=== PATIENT | female | born 1950 | race Caucasian/White ===

== ENCOUNTER 2018-10-13 07:51 | Inpatient (IN) ==
[2018-10-13] MEDS: LACTATED RINGERS 1,000 ML IV SCH (08:27)
[2018-10-13] MEDS ORDERED: SCOPOLAMINE 1.5 MG PATCH TRANSDERM ONE (08:34)
[2018-10-13] MEDS ORDERED: ePHEDrine 50 MG/ML AMP ONE ×2 (08:47→09:00)
[2018-10-13] MEDS ORDERED: DEXAMETHASONE 4 MG/1 ML VIAL ONE (09:00)
[2018-10-13] MEDS ORDERED: PROPOFOL 200 MG/20 ML VIAL IV ONE (09:00)
[2018-10-13] MEDS ORDERED: LIDOCAINE 2% 5 ML VIAL ONE (09:00)
[2018-10-13] MEDS ORDERED: ONDANSETRON 4 MG/2 ML VIAL ONE (09:00)
[2018-10-13] MEDS ORDERED: SODIUM CHLORIDE 0.45% 1,000 ML IV SCH (09:30)
[2018-10-13] MEDS ORDERED: SODIUM CHLORIDE 0.9% 500 ML IV ONE ×2 (09:59→10:01)
[2018-10-13] MEDS: DILTIAZEM 60 MG TABLET PO SCH ×4 (13:00→20:48)
[2018-10-13 13:24] LABS: PT Patient Result 10.6 SECS; Partial Thromboplastin Time 25.2 SECS (0-40)
[2018-10-13 13:25] LABS: Alanine Aminotransferase 13 U/L (13-56); Albumin 3.2 G/DL (3.4-5.0); Alkaline Phosphatase 79 U/L (45-117); Aspartate Amino Transferase 16 U/L (0-37); Bilirubin,Total < 0.39 MG/DL (0.2-1.0); Blood Urea Nitrogen 12 MG/DL (7-18); Calcium 8.7 MG/DL (8.5-10.1); Glucose 164 MG/DL (74-106); Osmolality,Calculated 282.4 MOS/KG (273-304); Potassium 3.8 MMOL/L (3.5-5.1); Sodium 140 MMOL/L (136-145); Total Protein 7.2 G/DL (6.4-8.3)
[2018-10-13 13:36] LABS: Basophils % 0.1 % (0.0-0.8); Eosinophils % 0.1 % (0.00-10.9); Hematocrit 30.1 VOL% (35.7-47.0); Hemoglobin 8.6 GM/DL (12.0-16.0); Immature Granulocytes % 0.8 %; Immature Granulocytes Absolute 0.11 #; Lymphocytes # 0.6 10*3/uL (1.4-4.0); Lymphocytes % 4.2 % (21.3-54.2); Mean Corpuscular HGB Conc 28.6 GM/DL (32-36); Mean Corpuscular Hemoglobin 19 PG (27-34); Mean Corpuscular Volume 67.6 FL (87-102); Mean Platelet Volume 9.4 FL (9.6-12.0); Monocytes # 0.2 10*3/uL (0.11-0.8); Neutrophils # 13.7 10*3/uL (1.4-7.4); Neutrophils % 93.8 % (38.7-73.9); Platelet Count 586 T/CUMM (130-400); Red Blood Count 4.45 MC/CUMM (3.8-5.5); Red Cell Distribution Width 18.7 % (9.3-17.3); White Blood Count 14.6 T/CUMM (4-12)
[2018-10-13 14:11] LABS: Lymphocytes 5 % (20-55); Segmented Neutrophils 95 % (50-85); Total Cells Counted 100
[2018-10-13 14:37] LABS: Anisocytosis 1+; Microcytosis 1+
[2018-10-13 14:38] LABS: Hypochromasia 2+; Ovalocytes Slight; Stomatocytes Slight
[2018-10-13 14:41] LABS: Tear Drop Cells Slight
[2018-10-13 14:43] LABS: Platelet Estimate Increased
[2018-10-13] MEDS: MULTIVITAMIN INJ 10 ML in SODIUM CHLORIDE 0.9% 1,000 ML IV SCH (17:26)
[2018-10-13] MEDS ORDERED: NAPROXEN 500 MG TABLET PO PRN (21:55)
[2018-10-13 22:38] LABS: Apearance,Urine CLOUDY (Clear); Bilirubin,Urine Negative (Negative); Blood, Urine Negative (Negative); Glucose,Urine (UA) Negative (Negative); Ketones,Urine Negative (Negative); Mucus,Urine Occasional /LPF (Occasional); Nitrite,Urine Positive (Negative); Protein,Urine Negative; RBC,Urine 11 /HPF (0-4); Squamous Epithelial Cell,Urine Occasional /HPF (0-10); Urine Color Yellow (Yellow); Urine Specific Gravity 1.028 (1.001-1.035); Urine Urobilinogen < 2.0 EU/DL (0.2-1.0); WBC,Urine 122 /HPF (0-6)
[2018-10-14] MEDS: LACTATED RINGERS 1,000 ML IV SCH ×2 (01:48→10:17)
[2018-10-14] MEDS ORDERED: SCOPOLAMINE 1.5 MG PATCH TRANSDERM ONE (07:00)
[2018-10-14] MEDS ORDERED: FAMOTIDINE 20 MG TABLET PO ONE (07:00)
[2018-10-14] MEDS: DILTIAZEM 60 MG TABLET PO SCH ×4 (10:17→22:26)
[2018-10-14] MEDS: MULTIVITAMIN INJ 10 ML in SODIUM CHLORIDE 0.9% 1,000 ML IV SCH (13:13)
[2018-10-14] MEDS ORDERED: CLINDAMYCIN 600 MG/4 ML VIAL ONE (13:17)
[2018-10-14] MEDS ORDERED: CIPROFLOXACIN 400 MG/200 ML PREMIX IV ONE (13:46)
[2018-10-14] MEDS ORDERED: ROPIVACAINE 0.5% 30 ML VIAL ONE (14:42)
[2018-10-14 14:44] LABS: Apearance,Urine CLEAR (Clear); Bacteria,Urine Occasional /HPF (Few); Bilirubin,Urine Negative (Negative); Blood, Urine Moderate mg/dL (Negative); Glucose,Urine (UA) Negative (Negative); Ketones,Urine Negative (Negative); Mucus,Urine Occasional /LPF (Occasional); Nitrite,Urine Negative (Negative); Protein,Urine Negative; RBC,Urine 38 /HPF (0-4); Squamous Epithelial Cell,Urine Occasional /HPF (0-10); Urine Color Straw (Yellow); Urine Specific Gravity 1.016 (1.001-1.035); Urine Urobilinogen < 2.0 EU/DL (0.2-1.0); WBC,Urine 14 /HPF (0-6)
[2018-10-14] MEDS ORDERED: PROPOFOL 200 MG/20 ML VIAL IV ONE (14:51)
[2018-10-14] MEDS ORDERED: SEVOFLURANE 1 UNIT/15 MINUTE INH ONE (14:51)
[2018-10-14] MEDS ORDERED: MIDAZOLAM 2 MG/2 ML VIAL ONE (14:51)
[2018-10-14] MEDS ORDERED: ONDANSETRON 4 MG/2 ML VIAL ONE (14:52)
[2018-10-14] MEDS ORDERED: ESMOLOL 100 MG/10 ML VIAL IV ONE (14:52)
[2018-10-14] MEDS ORDERED: ROCURONIUM 100 MG/10 ML VIAL IV ONE (14:52)
[2018-10-14] MEDS ORDERED: NEOSTIGMINE 10 MG/10 ML VIAL ONE (14:52)
[2018-10-14] MEDS ORDERED: PHENYLEPHRINE 1 MG/10 ML SYRINGE IV ONE (14:52)
[2018-10-14] MEDS ORDERED: SODIUM CHLORIDE 0.9% 100 ML IV ONE (14:52)
[2018-10-14] MEDS ORDERED: DEXAMETHASONE 10 MG/1 ML VIAL ONE (14:52)
[2018-10-14] MEDS ORDERED: SODIUM CHLORIDE 0.9% 1,000 ML IV ONE (14:52)
[2018-10-14] MEDS ORDERED: fentaNYL 100 MCG/2 ML VIAL ONE (14:52)
[2018-10-14] MEDS ORDERED: LACTATED RINGERS 1,000 ML IV ONE (14:52)
[2018-10-14] MEDS ORDERED: GLYCOPYRROLATE 0.4 MG/2 ML VIAL ONE (14:52)
[2018-10-14] MEDS: POTASSIUM CITRATE 10 MEQ TABLET PO SCH ×2 (16:00→22:25)
[2018-10-14] MEDS: MORPHINE 4 MG/1 ML VIAL IV PRN ×3 (17:18→22:19)
[2018-10-15] MEDS: MORPHINE 4 MG/1 ML VIAL IV PRN ×3 (03:55→20:39)
[2018-10-15 07:00] LABS: Calcium 8.4 MG/DL (8.5-10.1); Osmolality,Calculated 283.4 MOS/KG (273-304); Potassium 4.3 MMOL/L (3.5-5.1)
[2018-10-15 07:10] LABS: Basophils % 0.1 % (0.0-0.8); Hematocrit 26.7 VOL% (35.7-47.0); Hemoglobin 7.3 GM/DL (12.0-16.0); Immature Granulocytes % 0.5 %; Immature Granulocytes Absolute 0.09 #; Lymphocytes # 0.7 10*3/uL (1.4-4.0); Lymphocytes % 4.5 % (21.3-54.2); Mean Corpuscular HGB Conc 27.3 GM/DL (32-36); Mean Corpuscular Hemoglobin 19 PG (27-34); Mean Corpuscular Volume 68.5 FL (87-102); Mean Platelet Volume 9.1 FL (9.6-12.0); Monocytes # 0.8 10*3/uL (0.11-0.8); Neutrophils # 14.8 10*3/uL (1.4-7.4); Neutrophils % 89.9 % (38.7-73.9); Platelet Count 511 T/CUMM (130-400); Red Cell Distribution Width 18.7 % (9.3-17.3); White Blood Count 16.5 T/CUMM (4-12)
[2018-10-15] MEDS: DILTIAZEM 60 MG TABLET PO SCH ×4 (09:38→20:31)
[2018-10-15] MEDS: POTASSIUM CITRATE 10 MEQ TABLET PO SCH ×3 (09:39→20:32)
[2018-10-15 10:19] LABS: Band Neutrophils 1 % (0-10); Hypochromasia 3+; Lymphocytes 3 % (20-55); Microcytosis 2+; Ovalocytes Few; Segmented Neutrophils 95 % (50-85); Target Cells Slight; Total Cells Counted 100
[2018-10-15 10:20] LABS: Platelet Estimate Increased
[2018-10-15] MEDS: LACTATED RINGERS 1,000 ML IV SCH (12:33)
[2018-10-15] MEDS: MULTIVITAMIN INJ 10 ML in SODIUM CHLORIDE 0.9% 1,000 ML IV SCH (12:39)
[2018-10-15] MEDS: CIPROFLOXACIN 500 MG TABLET PO SCH (20:32)
[2018-10-16 07:36] LABS: Basophils % 0.1 % (0.0-0.8); Eosinophils % 0.1 % (0.00-10.9); Immature Granulocytes % 0.5 %; Immature Granulocytes Absolute 0.07 #; Lymphocytes # 1.4 10*3/uL (1.4-4.0); Lymphocytes % 10.5 % (21.3-54.2); Mean Corpuscular HGB Conc 27.6 GM/DL (32-36); Mean Corpuscular Hemoglobin 19 PG (27-34); Mean Corpuscular Volume 69.3 FL (87-102); Mean Platelet Volume 9.3 FL (9.6-12.0); Monocytes # 1.2 10*3/uL (0.11-0.8); Monocytes % 9.2 % (1.7-12.7); Neutrophils # 10.7 10*3/uL (1.4-7.4); Neutrophils % 79.6 % (38.7-73.9); Platelet Count 416 T/CUMM (130-400); Red Blood Count 3.61 MC/CUMM (3.8-5.5); Red Cell Distribution Width 18.7 % (9.3-17.3); White Blood Count 13.4 T/CUMM (4-12)
[2018-10-16 07:41] LABS: Hemoglobin 6.9 GM/DL (12.0-16.0)
[2018-10-16 07:42] LABS: Hypochromasia 1+; Microcytosis 1+; Platelet Estimate Adequate
[2018-10-16] MEDS: CIPROFLOXACIN 500 MG TABLET PO SCH ×2 (08:21→21:16)
[2018-10-16] MEDS: DILTIAZEM 60 MG TABLET PO SCH ×4 (08:22→21:16)
[2018-10-16] MEDS: POTASSIUM CITRATE 10 MEQ TABLET PO SCH ×3 (08:22→21:16)
[2018-10-16] MEDS: MORPHINE 4 MG/1 ML VIAL IV PRN ×2 (10:09→17:43)
[2018-10-16] MEDS ORDERED: SODIUM CHLORIDE 0.9% 1,000 ML IV PRN (11:46)
[2018-10-16] MEDS: ONDANSETRON 4 MG/2 ML VIAL IV PRN (14:29)
[2018-10-16] MEDS ORDERED: NITROGLYCERIN SL 0.4 MG TABLET SL ONE (17:02)
[2018-10-16] MEDS ORDERED: ASPIRIN CHEW 81 MG TABLET PO ONE (17:03)
[2018-10-16] MEDS ORDERED: MORPHINE 10 MG/1 ML VIAL ONE (17:04)
[2018-10-16] MEDS ORDERED: NITROGLYCERIN SL 0.4 MG TABLET SL PRN (17:04)
[2018-10-16] MEDS ORDERED: ALUM/MAG/SIMETH/LIDO VISC 1:1 30 ML BOTTLE PO ONE (17:27)
[2018-10-16 18:02] LABS: Albumin 2.6 G/DL (3.4-5.0); Bilirubin,Total 0.6 MG/DL (0.2-1.0); Calcium 8.3 MG/DL (8.5-10.1); Osmolality,Calculated 283.4 MOS/KG (273-304); Potassium 3.8 MMOL/L (3.5-5.1); Total Protein 6.4 G/DL (6.4-8.3)
[2018-10-16 18:20] LABS: Basophils % 0.2 % (0.0-0.8); Hematocrit 34.5 VOL% (35.7-47.0); Hemoglobin 10.1 GM/DL (12.0-16.0); Immature Granulocytes % 0.7 %; Immature Granulocytes Absolute 0.13 #; Lymphocytes # 1.5 10*3/uL (1.4-4.0); Lymphocytes % 7.8 % (21.3-54.2); Mean Corpuscular HGB Conc 29.3 GM/DL (32-36); Mean Corpuscular Hemoglobin 20 PG (27-34); Mean Corpuscular Volume 69.4 FL (87-102); Mean Platelet Volume 9.3 FL (9.6-12.0); Monocytes # 1.6 10*3/uL (0.11-0.8); Monocytes % 8.7 % (1.7-12.7); Neutrophils # 15.4 10*3/uL (1.4-7.4); Neutrophils % 82.6 % (38.7-73.9); Platelet Count 517 T/CUMM (130-400); Red Blood Count 4.97 MC/CUMM (3.8-5.5); Red Cell Distribution Width 19.2 % (9.3-17.3); White Blood Count 18.7 T/CUMM (4-12)
[2018-10-17] MEDS: MORPHINE 4 MG/1 ML VIAL IV PRN ×4 (00:01→13:30)
[2018-10-17] MEDS: ONDANSETRON 4 MG/2 ML VIAL IV PRN ×4 (00:13→23:15)
[2018-10-17 05:45] LABS: Calcium 8.8 MG/DL (8.5-10.1); Osmolality,Calculated 283.4 MOS/KG (273-304); Potassium 4.2 MMOL/L (3.5-5.1)
[2018-10-17 06:15] LABS: Basophils % 0.1 % (0.0-0.8); Eosinophils % 0.1 % (0.00-10.9); Hematocrit 36.9 VOL% (35.7-47.0); Immature Granulocytes % 0.6 %; Immature Granulocytes Absolute 0.11 #; Lymphocytes # 1.6 10*3/uL (1.4-4.0); Lymphocytes % 8.4 % (21.3-54.2); Mean Corpuscular HGB Conc 28.7 GM/DL (32-36); Mean Corpuscular Hemoglobin 20 PG (27-34); Mean Corpuscular Volume 69.1 FL (87-102); Mean Platelet Volume 9.2 FL (9.6-12.0); Monocytes # 1.7 10*3/uL (0.11-0.8); Neutrophils # 15.5 10*3/uL (1.4-7.4); Neutrophils % 81.8 % (38.7-73.9); Platelet Count 521 T/CUMM (130-400); Red Blood Count 5.34 MC/CUMM (3.8-5.5); Red Cell Distribution Width 19.7 % (9.3-17.3); White Blood Count 18.9 T/CUMM (4-12)
[2018-10-17 06:17] LABS: Hemoglobin 10.6 GM/DL (12.0-16.0)
[2018-10-17 06:19] LABS: Hypochromasia 1+; Platelet Estimate Increased; Polychromasia Few
[2018-10-17] MEDS ORDERED: METOPROLOL TARTRATE 5 MG/5 ML VIAL IV PRN (08:13)
[2018-10-17] MEDS: DILTIAZEM 60 MG TABLET PO SCH ×4 (08:50→21:37)
[2018-10-17] MEDS: CIPROFLOXACIN 500 MG TABLET PO SCH (08:51)
[2018-10-17] MEDS: POTASSIUM CITRATE 10 MEQ TABLET PO SCH ×3 (08:51→21:37)
[2018-10-17] MEDS: LACTATED RINGERS 1,000 ML IV SCH ×2 (08:52→17:28)
[2018-10-17] MEDS: HYDROmorphone 2 MG/1 ML VIAL IV PRN (23:17)
[2018-10-18] MEDS: LACTATED RINGERS 1,000 ML IV SCH ×3 (01:25→19:00)
[2018-10-18] MEDS: ONDANSETRON 4 MG/2 ML VIAL IV PRN ×2 (04:47→19:13)
[2018-10-18] MEDS: HYDROmorphone 2 MG/1 ML VIAL IV PRN ×2 (04:48→19:45)
[2018-10-18 06:19] LABS: Basophils % 0.1 % (0.0-0.8); Hematocrit 33.8 VOL% (35.7-47.0); Immature Granulocytes % 0.5 %; Immature Granulocytes Absolute 0.09 #; Lymphocytes # 0.6 10*3/uL (1.4-4.0); Lymphocytes % 3.6 % (21.3-54.2); Mean Corpuscular HGB Conc 28.4 GM/DL (32-36); Mean Corpuscular Hemoglobin 20 PG (27-34); Mean Corpuscular Volume 69.3 FL (87-102); Mean Platelet Volume 9.9 FL (9.6-12.0); Monocytes # 1.4 10*3/uL (0.11-0.8); Monocytes % 7.9 % (1.7-12.7); Neutrophils # 15.7 10*3/uL (1.4-7.4); Neutrophils % 87.9 % (38.7-73.9); Platelet Count 432 T/CUMM (130-400); Red Blood Count 4.88 MC/CUMM (3.8-5.5); Red Cell Distribution Width 19.7 % (9.3-17.3); White Blood Count 17.9 T/CUMM (4-12)
[2018-10-18 06:26] LABS: Hemoglobin 9.6 GM/DL (12.0-16.0)
[2018-10-18 06:35] LABS: Hypochromasia 1+; Lymphocytes 3 % (20-55); Ovalocytes Slight; Platelet Estimate Adequate; Segmented Neutrophils 90 % (50-85); Total Cells Counted 100
[2018-10-18 06:36] LABS: Microcytosis Slight
[2018-10-18] MEDS: DILTIAZEM 60 MG TABLET PO SCH (08:21)
[2018-10-18] MEDS: POTASSIUM CITRATE 10 MEQ TABLET PO SCH ×3 (08:21→21:35)
[2018-10-18] MEDS: CIPROFLOXACIN INJ 400 MG in PREMIX 1 EACH IV SCH ×2 (11:14→21:35)
[2018-10-18] MEDS: metroNIDAZOLE INJ 500 MG in PREMIX 1 EACH IV SCH ×4 (12:43→22:59)
[2018-10-18] MEDS: METOPROLOL TARTRATE 5 MG/5 ML VIAL IV SCH ×2 (12:43→19:07)
[2018-10-18] MEDS ORDERED: TRACE ELEMENTS (5) 1 ML, MULTIVITAMIN INJ 10 ML in AMINO ACIDS/DEXT/LYTES 5-15% 2,000 ML IV SCH (17:00)
[2018-10-18] MEDS: FAT EMULSION 20% 250 ML IV SCH (17:30)
[2018-10-19] MEDS: HYDROmorphone 2 MG/1 ML VIAL IV PRN ×5 (01:31→22:58)
[2018-10-19] MEDS: METOPROLOL TARTRATE 5 MG/5 ML VIAL IV SCH ×4 (01:33→18:49)
[2018-10-19] MEDS: LACTATED RINGERS 1,000 ML IV SCH ×2 (03:27→14:30)
[2018-10-19] MEDS: metroNIDAZOLE INJ 500 MG in PREMIX 1 EACH IV SCH ×4 (04:44→22:25)
[2018-10-19 06:30] LABS: Calcium 8.6 MG/DL (8.5-10.1); Osmolality,Calculated 284.5 MOS/KG (273-304); Potassium 4.3 MMOL/L (3.5-5.1); Prealbumin 8.9 MG/DL (20-40)
[2018-10-19 06:37] LABS: Basophils % 0.1 % (0.0-0.8); Eosinophils % 0.1 % (0.00-10.9); Hematocrit 30.1 VOL% (35.7-47.0); Immature Granulocytes % 0.7 %; Immature Granulocytes Absolute 0.12 #; Lymphocytes # 0.6 10*3/uL (1.4-4.0); Lymphocytes % 3.8 % (21.3-54.2); Mean Corpuscular HGB Conc 27.9 GM/DL (32-36); Mean Corpuscular Hemoglobin 20 PG (27-34); Mean Corpuscular Volume 70.8 FL (87-102); Mean Platelet Volume 9.8 FL (9.6-12.0); Monocytes # 1.4 10*3/uL (0.11-0.8); Monocytes % 8.7 % (1.7-12.7); Neutrophils # 14.1 10*3/uL (1.4-7.4); Neutrophils % 86.6 % (38.7-73.9); Platelet Count 360 T/CUMM (130-400); Red Blood Count 4.25 MC/CUMM (3.8-5.5); Red Cell Distribution Width 19.6 % (9.3-17.3); White Blood Count 16.3 T/CUMM (4-12)
[2018-10-19 06:38] LABS: Hemoglobin 8.4 GM/DL (12.0-16.0)
[2018-10-19 06:42] LABS: Hypochromasia 1+; Lymphocytes 4 % (20-55); Microcytosis 1+; Platelet Estimate Normal; Segmented Neutrophils 96 % (50-85); Total Cells Counted 100
[2018-10-19] MEDS ORDERED: ALBUTEROL 1.25 MG/3 ML NEB RESP TX PRN (09:06)
[2018-10-19] MEDS: POTASSIUM CITRATE 10 MEQ TABLET PO SCH ×3 (09:39→21:27)
[2018-10-19] MEDS: CIPROFLOXACIN INJ 400 MG in PREMIX 1 EACH IV SCH ×2 (09:46→20:56)
[2018-10-19] MEDS ORDERED: LIDOCAINE 2% VISCOUS 100 ML BOTTLE ONE (12:39)
[2018-10-19] MEDS: FAT EMULSION 20% 250 ML IV SCH (17:21)
[2018-10-19] MEDS: TRACE ELEMENTS (5) 1 ML, MULTIVITAMIN INJ 10 ML in AMINO ACIDS/DEXT/LYTES 5-15% 2,000 ML IV SCH (17:22)
[2018-10-19] MEDS: ONDANSETRON 4 MG/2 ML VIAL IV PRN (18:51)
[2018-10-20] MEDS: ONDANSETRON 4 MG/2 ML VIAL IV PRN (01:25)
[2018-10-20] MEDS: METOPROLOL TARTRATE 5 MG/5 ML VIAL IV SCH ×4 (01:27→18:40)
[2018-10-20] MEDS: LACTATED RINGERS 1,000 ML IV SCH ×4 (01:29→16:39)
[2018-10-20] MEDS: metroNIDAZOLE INJ 500 MG in PREMIX 1 EACH IV SCH ×3 (04:10→19:38)
[2018-10-20] MEDS: HYDROmorphone 2 MG/1 ML VIAL IV PRN ×3 (04:11→20:53)
[2018-10-20] MEDS ORDERED: SCOPOLAMINE 1.5 MG PATCH TRANSDERM ONE (09:14)
[2018-10-20] MEDS ORDERED: ONDANSETRON 4 MG/2 ML VIAL IV ONE (09:19)
[2018-10-20] MEDS ORDERED: DEXAMETHASONE INJ 10 MG in SODIUM CHLORIDE 0.9% 50 ML IV ONE (09:19)
[2018-10-20] MEDS ORDERED: ETOMIDATE 20 MG/10 ML VIAL IV ONE (09:32)
[2018-10-20] MEDS ORDERED: LIDOCAINE 1% 5 ML VIAL ONE (09:32)
[2018-10-20] MEDS ORDERED: PROPOFOL 200 MG/20 ML VIAL IV ONE (09:32)
[2018-10-20] MEDS ORDERED: DEXTROSE 10% 1,000 ML IV PRN (11:30)
[2018-10-20] MEDS ORDERED: GLUCAGON 1 MG VIAL IM PRN (11:30)
[2018-10-20] MEDS ORDERED: DEXTROSE 50% 25 GM/50 ML SYRINGE IV PRN (11:30)
[2018-10-20] MEDS: POTASSIUM CITRATE 10 MEQ TABLET PO SCH ×3 (12:14→20:48)
[2018-10-20] MEDS: CIPROFLOXACIN INJ 400 MG in PREMIX 1 EACH IV SCH ×2 (12:21→20:43)
[2018-10-20] MEDS: FAT EMULSION 20% 250 ML IV SCH (16:39)
[2018-10-20] MEDS: TRACE ELEMENTS (5) 1 ML, MULTIVITAMIN INJ 10 ML in AMINO ACIDS/DEXT/LYTES 5-15% 2,000 ML IV SCH (16:39)
[2018-10-21] MEDS: metroNIDAZOLE INJ 500 MG in PREMIX 1 EACH IV SCH ×4 (01:31→20:21)
[2018-10-21] MEDS: METOPROLOL TARTRATE 5 MG/5 ML VIAL IV SCH ×4 (01:32→20:24)
[2018-10-21] MEDS: LACTATED RINGERS 1,000 ML IV SCH ×2 (02:52→13:46)
[2018-10-21 03:22] LABS: Calcium 8.1 MG/DL (8.5-10.1); Osmolality,Calculated 284.4 MOS/KG (273-304); Potassium 4.2 MMOL/L (3.5-5.1)
[2018-10-21 06:46] LABS: Basophils % 0.1 % (0.0-0.8); Hematocrit 29.2 VOL% (35.7-47.0); Hemoglobin 8.3 GM/DL (12.0-16.0); Immature Granulocytes % 1.7 %; Immature Granulocytes Absolute 0.25 #; Lymphocytes # 0.8 10*3/uL (1.4-4.0); Lymphocytes % 5.5 % (21.3-54.2); Mean Corpuscular HGB Conc 28.4 GM/DL (32-36); Mean Corpuscular Hemoglobin 20 PG (27-34); Mean Corpuscular Volume 70.2 FL (87-102); Mean Platelet Volume 10.4 FL (9.6-12.0); Monocytes # 1.3 10*3/uL (0.11-0.8); Neutrophils # 12.4 10*3/uL (1.4-7.4); Neutrophils % 83.7 % (38.7-73.9); Platelet Count 296 T/CUMM (130-400); Red Blood Count 4.16 MC/CUMM (3.8-5.5); White Blood Count 14.8 T/CUMM (4-12)
[2018-10-21 07:30] LABS: Hypochromasia 2+; Microcytosis Slight; Platelet Estimate Adequate
[2018-10-21] MEDS: POTASSIUM CITRATE 10 MEQ TABLET PO SCH ×3 (08:45→22:36)
[2018-10-21] MEDS: HYDROmorphone 2 MG/1 ML VIAL IV PRN ×3 (09:14→23:39)
[2018-10-21] MEDS: CIPROFLOXACIN INJ 400 MG in PREMIX 1 EACH IV SCH ×2 (10:49→23:40)
[2018-10-21] MEDS ORDERED: SODIUM PHOSPHATE INJ 20 MMOL in SODIUM CHLORIDE 0.9% 250 ML IV ONE (11:00)
[2018-10-21] MEDS: TRACE ELEMENTS (5) 1 ML, MULTIVITAMIN INJ 10 ML in AMINO ACIDS/DEXT/LYTES 5-15% 2,000 ML IV SCH (16:03)
[2018-10-21] MEDS: FAT EMULSION 20% 250 ML IV SCH (16:04)
[2018-10-22] MEDS: metroNIDAZOLE INJ 500 MG in PREMIX 1 EACH IV SCH ×4 (02:07→19:54)
[2018-10-22] MEDS: METOPROLOL TARTRATE 5 MG/5 ML VIAL IV SCH ×4 (02:08→19:54)
[2018-10-22] MEDS: LACTATED RINGERS 1,000 ML IV SCH ×3 (05:39→19:53)
[2018-10-22] MEDS: HYDROmorphone 2 MG/1 ML VIAL IV PRN ×2 (05:43→19:57)
[2018-10-22] MEDS: POTASSIUM CITRATE 10 MEQ TABLET PO SCH ×3 (09:05→23:36)
[2018-10-22] MEDS: CIPROFLOXACIN INJ 400 MG in PREMIX 1 EACH IV SCH ×2 (10:31→21:11)
[2018-10-22] MEDS: TRACE ELEMENTS (5) 1 ML, MULTIVITAMIN INJ 10 ML in AMINO ACIDS/DEXT/LYTES 5-15% 2,000 ML IV SCH (16:47)
[2018-10-22] MEDS: FAT EMULSION 20% 250 ML IV SCH (16:48)
[2018-10-23] MEDS: METOPROLOL TARTRATE 5 MG/5 ML VIAL IV SCH ×3 (02:27→13:48)
[2018-10-23] MEDS: metroNIDAZOLE INJ 500 MG in PREMIX 1 EACH IV SCH ×4 (02:27→19:59)
[2018-10-23] MEDS: HYDROmorphone 2 MG/1 ML VIAL IV PRN ×4 (02:32→20:09)
[2018-10-23] MEDS: POTASSIUM CITRATE 10 MEQ TABLET PO SCH ×3 (08:36→20:00)
[2018-10-23] MEDS: LACTATED RINGERS 1,000 ML IV SCH ×3 (09:02→15:10)
[2018-10-23] MEDS: CIPROFLOXACIN INJ 400 MG in PREMIX 1 EACH IV SCH ×2 (09:25→21:43)
[2018-10-23] MEDS: ONDANSETRON 4 MG/2 ML VIAL IV PRN (13:48)
[2018-10-23] MEDS: FAT EMULSION 20% 250 ML IV SCH (13:49)
[2018-10-23] MEDS ORDERED: METOPROLOL TARTRATE 5 MG/5 ML VIAL IV PRN (16:21)
[2018-10-23] MEDS: TRACE ELEMENTS (5) 1 ML, MULTIVITAMIN INJ 10 ML in AMINO ACIDS/DEXT/LYTES 5-15% 2,000 ML IV SCH (17:12)
[2018-10-23] MEDS: DILTIAZEM 60 MG TABLET PO SCH ×2 (17:12→20:00)
[2018-10-24] MEDS: LACTATED RINGERS 1,000 ML IV SCH ×2 (01:36→11:05)
[2018-10-24] MEDS: metroNIDAZOLE INJ 500 MG in PREMIX 1 EACH IV SCH ×2 (01:36→09:46)
[2018-10-24] MEDS: HYDROmorphone 2 MG/1 ML VIAL IV PRN ×3 (04:39→20:14)
[2018-10-24] MEDS: DILTIAZEM 60 MG TABLET PO SCH ×4 (09:46→20:18)
[2018-10-24] MEDS: POTASSIUM CITRATE 10 MEQ TABLET PO SCH ×3 (09:46→20:18)
[2018-10-24 10:31] LABS: Basophils % 0.2 % (0.0-0.8); Eosinophils # 0.5 10*3/uL (0.0-0.87); Eosinophils % 2.9 % (0.00-10.9); Hematocrit 27.5 VOL% (35.7-47.0); Hemoglobin 7.8 GM/DL (12.0-16.0); Immature Granulocytes Absolute 0.37 #; Lymphocytes # 1.5 10*3/uL (1.4-4.0); Lymphocytes % 8.3 % (21.3-54.2); Mean Corpuscular HGB Conc 28.4 GM/DL (32-36); Mean Corpuscular Hemoglobin 20 PG (27-34); Mean Corpuscular Volume 71.4 FL (87-102); Mean Platelet Volume 11.2 FL (9.6-12.0); Monocytes # 1.2 10*3/uL (0.11-0.8); Monocytes % 6.6 % (1.7-12.7); Neutrophils # 14.5 10*3/uL (1.4-7.4); Platelet Count 328 T/CUMM (130-400); Red Blood Count 3.85 MC/CUMM (3.8-5.5); Red Cell Distribution Width 20.8 % (9.3-17.3)
[2018-10-24 10:35] LABS: White Blood Count 18.2 T/CUMM (4-12)
[2018-10-24 10:38] LABS: Calcium 7.6 MG/DL (8.5-10.1); Osmolality,Calculated 279.5 MOS/KG (273-304); Potassium 3.6 MMOL/L (3.5-5.1)
[2018-10-24 11:04] LABS: Band Neutrophils 1 % (0-10); Eosinophils 3 % (0-10); Lymphocytes 7 % (20-55); Segmented Neutrophils 82 % (50-85); Total Cells Counted 100
[2018-10-24 11:05] LABS: Hypochromasia 1+; Microcytosis Slight; Ovalocytes Slight; Platelet Estimate Adequate
[2018-10-24] MEDS: CIPROFLOXACIN INJ 400 MG in PREMIX 1 EACH IV SCH (11:05)
[2018-10-24] MEDS: FAT EMULSION 20% 250 ML IV SCH (14:56)
[2018-10-24] MEDS: TRACE ELEMENTS (5) 1 ML, MULTIVITAMIN INJ 10 ML in AMINO ACIDS/DEXT/LYTES 5-15% 2,000 ML IV SCH (17:22)
[2018-10-25] MEDS: HYDROmorphone 2 MG/1 ML VIAL IV PRN ×2 (07:36→11:57)
[2018-10-25] MEDS: DILTIAZEM 60 MG TABLET PO SCH (11:02)
[2018-10-25] MEDS: POTASSIUM CITRATE 10 MEQ TABLET PO SCH (11:02)
[2018-10-25 11:43] VITALS: BP 94/68
== END 2018-10-25 12:52 | disposition home or self-care (01) | DRG 330 ==
LOC: N.GILAB 07:51 → N.4E 09:19
PROVIDERS: ADMIT Internal Medicine Gastroenterology; ATTEND Internal Medicine Gastroenterology